=== PATIENT | male | born 1985 | race Caucasian/White ===

== ENCOUNTER 2017-02-28 19:29 | Emergency (ER) | payer SELFPAY ==
[~2017-02-28 19:29] MED LIST: CLIN1CAP6 PO; IBUP-232 PO
[2017-02-28 19:32] VITALS: BP 144/88; PULSE 69; RESP 16; TEMP 98.7; O2SAT 97
[2017-02-28] MEDS ORDERED: ACETAMINOPHEN/HYDROcodone 325 MG/5 MG TAB PO ONE (21:30)
[2017-02-28] MEDS ORDERED: LIDOCAINE HCL 1% 50 ML VIAL INFIL ONE (21:30)
[2017-02-28] MEDS ORDERED: BACT800T5 PO (21:50)
[2017-02-28] MEDS ORDERED: HYDR-3533 PO (21:50)
[2017-02-28] MEDS ORDERED: DICL75TA PO (21:50)
--- NOTE | 2017-02-28 21:53 | RADRPT ---
EXAM DATE/TIME: 02/28/2017 20:56 [place] COMPARISON: No previous studies available for comparison. INDICATIONS : Right wrist pain and laceration, hand went through window. MEDICAL HISTORY : None. SURGICAL HISTORY : None. ENCOUNTER: Initial ACUITY: 1 day PAIN SCORE: 10/10 LOCATION: Right wrist FINDINGS: Three view examination of the right wrist demonstrates an apparent soft tissue defect just dorsal to the radius with no radiopaque foreign body. Osseous structures are intact. Accessory ossification dis rosmery to the ulna is well-corticated. CONCLUSION: 1. Soft tissue defect dorsal to the distal radial metaphysis with no radiopaque foreign body. 2. Accessory ossification distal to the ulna with no acute fracture. Jorge Vann MD on February 28, 2017 at 21:51 Board Certified Radiologist. This report was verified electronically.
--- NOTE | 2017-02-28 21:58 | PD ---
HPI Chief Complaint: Laceration/Skin Injury Time Seen by Provider: 21:24 Travel History International Travel<30 days: No Contact w/Intl Traveler<30days: No Traveled to known affect area: No History of Present Illness HPI 31-year-old male that presents to the ED for evaluation of injury to his right wrist. Per patient he was helping put shutters when his hand broke a window and he cut himself. Per patient is not sure if the piece of glass fell onto his also hand or he just got it but all he knows is that he has a cut and there. Patient came here immediately to get evaluated. He states that his pain is 10 out of 10. He denies any chest pain or shortness of breath. Per patient his pain is only with movements of the fingers. He states that he has as a tingling sensation to his digits but is able to move it fully. He denies any other medical issues. He is up-to-date with his tetanus. History of MRSA. 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; HEYDI 03/26/16) Allergies-Medications (Allergen,Severity, Reaction): Coded Allergies: *MDRO Multi-Drug Resistant Organism (Verified Adverse Reaction, Unknown, MRSA, 02/28/17) MRSA (arm wound) - 05/28/16 Reported Meds & Prescriptions Reported Meds & Active Scripts Active Lortab (Hydrocodone-Acetaminophen) 5-325 Mg Tab 1 Tab PO Q6H PRN Diclofenac Sodium DR (Diclofenac Sodium) 75 Mg Tabdr 75 Mg PO BID PRN Bactrim DS (Sulfamethoxazole-Trimethoprim) 800-160 Mg Tab 1 Tab PO BID 10 Days Review of Systems Except as stated in HPI: all other systems reviewed are Neg Physical Exam Narrative GENERAL: SKIN: Warm and dry. HEAD: Atraumatic. Normocephalic. EYES: Pupils equal and round. No scleral icterus. No injection or drainage. ENT: No nasal bleeding or discharge. Mucous membranes pink and moist. Tongue is midline. No uvula deviation. NECK: Trachea midline. No JVD. CARDIOVASCULAR: Regular rate and rhythm. No murmurs, S3, S4. RESPIRATORY: No accessory muscle use. Clear to auscultation. Breath sounds equal bilaterally. GASTROINTESTINAL: Abdomen soft, non-tender, nondistended. Hepatic and splenic margins not palpable. MUSCULOSKELETAL: Extremities without clubbing, cyanosis, or edema. No obvious deformities. Full range of motion of the upper and lower extremities bilaterally. 2+ pulses bilaterally. Patient has full range of motion of all digits of the right hand. Good capillary refill. Sensation intact bilaterally. Patient has a superficial laceration to the dorsal aspect of the right wrist about 2 cm in length horizontal. No sign of tendon, vessel, nerve damage noted. Patient able to move the wrist and the digits fully only with pain with extension but able to do it. Good strength. NEUROLOGICAL: Awake and alert. No obvious cranial nerve deficits. Motor grossly within normal limits. Five out of 5 muscle strength in the arms and legs. Normal speech. PSYCHIATRIC: Appropriate mood and affect; insight and judgment normal. Data Data Last Documented VS Vital Signs Date Time Temp Pulse Resp B/P (MAP) Pulse Ox O2 Delivery O2 Flow Rate FiO2 02/28/17 19:32 98.7 69 16 144/88 (106) 97 Room Air Orders Orders Wrist, Complete ([id number]) (02/28/17 ) Wound Care (02/28/17 21:28) Lidocaine 1% Inj (50 Ml) (Xylocaine 1% I (02/28/17 21:30) Acetamin-Hydrocod 325-5 Mg (Wynot 5-325 (02/28/17 21:30) Splint Or Brace Apply/Monitor (02/28/17 21:47) Sulfamet-Trimeth Ds 800-160 Mg (Bactrim (02/28/17 22:00) MDM Medical Decision Making Medical Screen Exam Complete: Yes Emergency Medical Condition: Yes Medical Record Reviewed: Yes Interpretation(s) X-ray negative for acute disease Differential Diagnosis Laceration versus abrasion versus skin there Narrative Course 31-year-old male that presents to the ED for evaluation of laceration to dorsal aspect of the right hand. Patient was properly examined and was found to have signs and symptoms consistent laceration. Patient does not appear to have any tendon or vessel damage. He is able to move all fingers. He does get pain with extension with this is likely secondary to the contusion. At this time I recommend suturing. Patient agrees with this. Please refer to my procedure note. Patient was put on a brace. Given prescription for diclofenac sodium, Bactrim. Told to get sutures removed in 14 days. Wound care was endorsed. Told to follow with PCP. See ED for any worsening symptoms. Procedures Procedure Narrative LACERATION LOCATION: dorsal wrist LENGTH: 2 cm NUMBER OF STITCHES/JHON: 3 sutures with horizontal mattress REPAIR: The area of the laceration was prepped with Betadine and sterilely draped. The laceration was infiltrated with 1% Xylocaine. The wound was copiously irrigated and explored without evidence of foreign body, tendon injury or neurovascular injury. The wound was closed using 3-0 Prolene. This was a 1 layer repair. A sterile dressing was applied. The patient was advised to keep the dressing clean and dry. Patient tolerated the procedure well. Diagnosis Primary Impression: Laceration of wrist Qualified Codes: S61.511A - Laceration without foreign body of right wrist, initial encounter Patient Instructions: General Instructions, Narcotic given in the ED Additional Instructions: Take medications as prescribed. Follow-up with PCP. See ED for any worsening symptoms. Do not drink or drive while taking pain medication. Apply ice or heat as needed for pain Med/Other Pt SpecificInfo: Prescription(s) given Scripts Hydrocodone-Acetaminophen (Lortab) 5-325 Mg Tab 1 TAB PO Q6H Y for PAIN, #10 TAB 0 Refills Prov: Angelica Jacob MD 02/28/[address] (Diclofenac Sodium DR) 75 Mg Tabdr 75 MG PO BID Y for PAIN SCALE 1 TO 10, #20 TAB 0 Refills Prov: Angelica Jacob MD 02/28/17 Sulfamethoxazole-Trimethoprim (Bactrim DS) 800-160 Mg Tab 1 TAB PO BID for Infection for 10 Days, #6 TAB 0 Refills Prov: Angelica Jacob MD 02/28/17 Disposition: 01 DISCHARGE HOME Condition: Stable Osvaldo May Feb 28, 2017 21:58
[2017-02-28] MEDS ORDERED: SULFAMETHOXAZOLE-TRIMETHOPRIM DS 800-160 MG TAB PO ONE (22:00)
== END 2017-02-28 22:21 | disposition home or self-care (01) ==
LOC: NEPE 19:29
DX: S61.511A Laceration without foreign body of right wrist, initial encounter (principal); W25.XXXA Contact with sharp glass, initial encounter; Y93.89 Activity, other specified
CPT/HCPCS: 12001; 73110; 99284; L3908